=== PATIENT | male | born 1975 | race Caucasian/White ===

== ENCOUNTER 2017-09-26 14:27 | Inpatient (IN) ==
[2017-09-26 15:14] LABS: Apearance,Urine CLOUDY (Clear); Bilirubin,Urine Negative (Negative); Blood, Urine Large mg/dL (Negative); Glucose,Urine (UA) 50 mg/dL (Negative); Ketones,Urine Negative (Negative); Nitrite,Urine Negative (Negative); Protein,Urine 100 MG/DL; RBC,Urine 4412 /HPF (0-4); Urine Specific Gravity 1.018 (1.001-1.035); WBC,Urine 119 /HPF (0-6)
[2017-09-26 15:15] LABS: Urine Color Red (Yellow)
[2017-09-26] MEDS ORDERED: KETOROLAC 30 MG/1 ML VIAL IV STA (16:37)
[2017-09-26] MEDS ORDERED: SODIUM CHLORIDE 0.9% 1,000 ML IV STA (16:37)
[2017-09-26] MEDS ORDERED: ONDANSETRON 4 MG/2 ML VIAL IV STA (16:37)
[2017-09-26] MEDS ORDERED: HYDROmorphone 2 MG/1 ML VIAL IV STA (16:37)
[2017-09-26] MEDS ORDERED: LEVOFLOXACIN INJ 750 MG in PREMIX 1 EACH IV STA (16:37)
[2017-09-26] MEDS ORDERED: KETOROLAC 30 MG/1 ML VIAL ONE (17:38)
[2017-09-26] MEDS ORDERED: LEVOFLOXACIN INJ 150 ML IV ONE (17:38)
[2017-09-26] MEDS ORDERED: HYDROmorphone 2 MG/1 ML VIAL ONE (17:38)
[2017-09-26] MEDS ORDERED: ONDANSETRON 4 MG/2 ML VIAL ONE (17:38)
[2017-09-26 17:43] LABS: Basophils # 0.1 10*3/uL (0.0-0.2); Basophils % 0.4 % (0.0-0.8); Eosinophils # 0.1 10*3/uL (0.0-0.87); Eosinophils % 0.4 % (0.00-10.9); Hematocrit 42.7 VOL% (42.0-52.0); Hemoglobin 15.9 GM/DL (14.0-18.0); Immature Granulocytes % 0.5 %; Immature Granulocytes Absolute 0.11 #; Lymphocytes # 1.6 10*3/uL (1.4-4.0); Lymphocytes % 7.9 % (21.2-54.2); Mean Corpuscular HGB Conc 37.2 GM/DL (32-36); Mean Corpuscular Hemoglobin 31 PG (27-34); Mean Corpuscular Volume 83.7 FL (87-102); Mean Platelet Volume 10.5 FL (9.6-12.0); Monocytes # 1.3 10*3/uL (0.11-0.8); Monocytes % 6.2 % (1.7-12.7); Neutrophils # 16.9 10*3/uL (1.4-7.4); Neutrophils % 84.6 % (38.7-73.9); Platelet Count 229 T/CUMM (130-400); Red Cell Distribution Width 13.1 % (9.3-17.3)
[2017-09-26 18:07] LABS: Albumin 4.1 G/DL (3.4-5.0); Bilirubin,Total 2.7 MG/DL (0.2-1.0); Calcium 9.1 MG/DL (8.5-10.1); Eosinophils 1 % (0-10); Lymphocytes 9 % (20-55); Magnesium 2.3 MG/DL (1.8-2.4); Osmolality,Calculated 279.7 MOS/KG (273-304); Platelet Estimate Adequate; Potassium 3.3 MMOL/L (3.5-5.1); Segmented Neutrophils 85 % (50-85); Total Cells Counted 100; Total Protein 7.5 G/DL (6.4-8.3)
[2017-09-26] MEDS ORDERED: POTASSIUM CHLORIDE 20 MEQ TABLET PO STA (18:39)
[2017-09-26 19:29] LABS: Lactic Acid 0.6 MMOL/L (0.4-2.0)
[2017-09-26] MEDS ORDERED: MAGNESIUM CITRATE 300 ML BOTTLE PO ONE (19:32)
[2017-09-26] MEDS ORDERED: ONDANSETRON 4 MG/2 ML VIAL IV PRN (19:45)
[2017-09-26] MEDS ORDERED: SODIUM CHLORIDE 0.9% 1,000 ML IV ONE (19:45)
[2017-09-26 19:46] LABS: PT Patient Result 10.9 SECS; Partial Thromboplastin Time 27.8 SECS (0-40)
[2017-09-26] MEDS ORDERED: POTASSIUM CHLORIDE 20 MEQ TABLET PO ONE (20:01)
[2017-09-26] MEDS: CARVEDILOL 12.5 MG TABLET PO SCH (20:46)
[2017-09-26] MEDS: amLODIPine 5 MG TABLET PO SCH (20:46)
[2017-09-26] MEDS: SODIUM CHLORIDE 0.45% 1,000 ML IV SCH (20:47)
[2017-09-26 21:20] LABS: Hepatitis A Ab IgM Quant 0.11 Index; Hepatitis A Ab IgM Result Negative (Negative); Hepatitis B Core IgM Quant 0.13 Index; Hepatitis B Core IgM Result Negative (Negative); Hepatitis B Surface Ag Quant 0.13 Index; Hepatitis B Surface Ag Result Negative (Negative); Hepatitis C Virus Ab Quant 0.11 Index; Hepatitis C Virus Ab Result Negative (Negative)
[2017-09-27] MEDS ORDERED: PNEUMOCOCCAL VACCINE (13 VALENT) 0.5 ML SYRINGE IM ONE (01:22)
[2017-09-27] MEDS: AZELASTINE NASAL 137 MCG/SPRAY 30 ML BOTTLE BOTH NARES SCH ×3 (02:09→23:02)
[2017-09-27] MEDS: SODIUM CHLORIDE 0.45% 1,000 ML IV SCH ×3 (06:01→20:24)
[2017-09-27 06:54] LABS: Albumin 3.2 G/DL (3.4-5.0); Bilirubin,Total 3.3 MG/DL (0.2-1.0); Calcium 8.1 MG/DL (8.5-10.1); Osmolality,Calculated 282.4 MOS/KG (273-304); Potassium 4.2 MMOL/L (3.5-5.1); Total Protein 6.4 G/DL (6.4-8.3)
[2017-09-27 07:07] LABS: Risk Ratio 3.39; VLDL CHOLESTEROL 17.2 MG/DL
[2017-09-27 07:30] LABS: Basophils # 0.1 10*3/uL (0.0-0.2); Basophils % 0.5 % (0.0-0.8); Eosinophils # 0.1 10*3/uL (0.0-0.87); Eosinophils % 0.7 % (0.00-10.9); Hematocrit 38.6 VOL% (42.0-52.0); Hemoglobin 14.1 GM/DL (14.0-18.0); Immature Granulocytes % 0.7 %; Immature Granulocytes Absolute 0.12 #; Lymphocytes # 1.7 10*3/uL (1.4-4.0); Lymphocytes % 9.9 % (21.2-54.2); Mean Corpuscular HGB Conc 36.5 GM/DL (32-36); Mean Corpuscular Hemoglobin 31 PG (27-34); Mean Corpuscular Volume 84.5 FL (87-102); Mean Platelet Volume 10.9 FL (9.6-12.0); Monocytes # 1.2 10*3/uL (0.11-0.8); Monocytes % 6.7 % (1.7-12.7); Neutrophils # 14.3 10*3/uL (1.4-7.4); Neutrophils % 81.5 % (38.7-73.9); Platelet Count 181 T/CUMM (130-400); Red Blood Count 4.57 MC/CUMM (3.8-5.5); Red Cell Distribution Width 13.2 % (9.3-17.3); White Blood Count 17.6 T/CUMM (4-12)
[2017-09-27] MEDS: CARVEDILOL 12.5 MG TABLET PO SCH ×2 (08:26→20:17)
[2017-09-27] MEDS: PANTOPRAZOLE 40 MG TABLET PO SCH (08:26)
[2017-09-27] MEDS ORDERED: ALBUTEROL/IPRATROPIUM 3 ML NEB RESP TX PRN (15:36)
[2017-09-27] MEDS: TAMSULOSIN 0.4 MG CAPSULE PO SCH (16:30)
[2017-09-27] MEDS ORDERED: LEVOFLOXACIN INJ 750 MG in PREMIX 1 EACH IV SCH (18:00)
[2017-09-27] MEDS: amLODIPine 5 MG TABLET PO SCH (20:17)
[2017-09-28] MEDS: CARVEDILOL 12.5 MG TABLET PO SCH (09:52)
[2017-09-28] MEDS: TAMSULOSIN 0.4 MG CAPSULE PO SCH (09:52)
[2017-09-28] MEDS: PANTOPRAZOLE 40 MG TABLET PO SCH (09:52)
[2017-09-28 09:55] LABS: Albumin 3.2 G/DL (3.4-5.0); Bilirubin,Total 2.1 MG/DL (0.2-1.0); Calcium 8.1 MG/DL (8.5-10.1); Osmolality,Calculated 284.1 MOS/KG (273-304); Potassium 3.8 MMOL/L (3.5-5.1); Total Protein 6.3 G/DL (6.4-8.3)
[2017-09-28 10:00] LABS: Basophils # 0.1 10*3/uL (0.0-0.2); Basophils % 0.4 % (0.0-0.8); Eosinophils # 0.3 10*3/uL (0.0-0.87); Eosinophils % 1.8 % (0.00-10.9); Hematocrit 37.7 VOL% (42.0-52.0); Hemoglobin 13.9 GM/DL (14.0-18.0); Immature Granulocytes Absolute 0.14 #; Lymphocytes # 1.8 10*3/uL (1.4-4.0); Lymphocytes % 12.9 % (21.2-54.2); Mean Corpuscular HGB Conc 36.9 GM/DL (32-36); Mean Corpuscular Hemoglobin 31 PG (27-34); Mean Corpuscular Volume 85.1 FL (87-102); Mean Platelet Volume 10.8 FL (9.6-12.0); Monocytes # 0.8 10*3/uL (0.11-0.8); Monocytes % 5.6 % (1.7-12.7); Neutrophils % 78.3 % (38.7-73.9); Platelet Count 194 T/CUMM (130-400); Red Blood Count 4.43 MC/CUMM (3.8-5.5); Red Cell Distribution Width 13.1 % (9.3-17.3)
[2017-09-28] MEDS: SODIUM CHLORIDE 0.45% 1,000 ML IV SCH (11:26)
[2017-09-28 16:37] VITALS: BP 135/77
== END 2017-09-28 18:00 | disposition home or self-care (01) | DRG 872 ==
LOC: N.ED 14:27 → N.EDINP 19:17 → N.5E 19:42
PROVIDERS: ADMIT Internal Medicine; ATTEND Internal Medicine

== ENCOUNTER 2019-04-10 08:56 | Inpatient (IN) ==
[2019-04-10] MEDS ORDERED: methylPREDNISolone SOD SUC 125 MG/2 ML VIAL IV STA (09:34)
[2019-04-10] MEDS ORDERED: cefTRIAXone 1,000 MG in SODIUM CHLORIDE 0.9% 100 ML IV STA (09:34)
[2019-04-10] MEDS ORDERED: ONDANSETRON 4 MG/2 ML VIAL IV STA (09:34)
[2019-04-10] MEDS ORDERED: cefTRIAXone 1,000 MG in SYRINGE 1 EACH IV STA (09:39)
[2019-04-10 09:58] LABS: Basophils # 0.1 10*3/uL (0.0-0.2); Basophils % 0.4 % (0.0-0.8); Eosinophils # 0.1 10*3/uL (0.0-0.87); Eosinophils % 0.7 % (0.00-10.9); Hematocrit 41.2 VOL% (42.0-52.0); Hemoglobin 14.6 GM/DL (14.0-18.0); Immature Granulocytes % 0.7 %; Immature Granulocytes Absolute 0.12 #; Lymphocytes # 1.1 10*3/uL (1.4-4.0); Lymphocytes % 6.8 % (21.2-54.2); Mean Corpuscular HGB Conc 35.4 GM/DL (32-36); Mean Corpuscular Volume 85.3 FL (87-102); Mean Platelet Volume 10.9 FL (9.6-12.0); Monocytes % 4.8 % (1.7-12.7); Neutrophils % 86.6 % (38.7-73.9); Platelet Count 302 T/CUMM (130-400); Red Blood Count 4.83 MC/CUMM (3.8-5.5); Red Cell Distribution Width 13.4 % (9.3-17.3); White Blood Count 16.7 T/CUMM (4-12)
[2019-04-10] MEDS ORDERED: ALBUTEROL NEB SOLN 5 MG/ML 20 ML/BOTTLE RESP TX SCH (10:00)
[2019-04-10 10:10] LABS: Albumin 3.7 G/DL (3.4-5.0); Bilirubin,Total 4.2 MG/DL (0.2-1.0); Calcium 9.3 MG/DL (8.5-10.1); Osmolality,Calculated 280.1 MOS/KG (273-304)
[2019-04-10] MEDS ORDERED: POTASSIUM CHLORIDE 20 MEQ TABLET PO STA (10:14)
[2019-04-10] MEDS ORDERED: ZALEPLON 5 MG CAPSULE PO PRN (11:56)
[2019-04-10] MEDS ORDERED: ACETAMINOPHEN 325 MG TABLET PO PRN (11:56)
[2019-04-10] MEDS ORDERED: ALBUTEROL/IPRATROPIUM 3 ML NEB RESP TX PRN (11:56)
[2019-04-10] MEDS ORDERED: ONDANSETRON 4 MG/2 ML VIAL IV PRN (11:56)
[2019-04-10] MEDS: DEXTROSE 5% NACL 0.45% 1,000 ML IV SCH ×2 (12:12→21:16)
[2019-04-10] MEDS: LEVOFLOXACIN INJ 750 MG in PREMIX 1 EACH IV SCH (12:12)
[2019-04-10] MEDS ORDERED: DEXTROSE 50% 25 GM/50 ML SYRINGE IV PRN (14:30)
[2019-04-10] MEDS ORDERED: GLUCAGON 1 MG VIAL IM PRN (14:30)
[2019-04-10] MEDS ORDERED: amLODIPine 10 MG TABLET PO SCH ×2 (14:30→21:00)
[2019-04-10] MEDS: METOPROLOL TARTRATE 50 MG TABLET PO SCH ×2 (15:38→21:16)
[2019-04-10] MEDS: INSULIN LISPRO 100 UNIT/ML SUBCUT SCH ×2 (18:09→21:15)
[2019-04-10] MEDS: ENOXAPARIN 40 MG/0.4 ML SYRINGE SUBCUT SCH (21:15)
[2019-04-10] MEDS: guaiFENesin/DM ER 600-30 MG TABLET PO SCH (21:16)
[2019-04-11 04:54] LABS: Basophils % 0.2 % (0.0-0.8); Hematocrit 39.1 VOL% (42.0-52.0); Hemoglobin 13.6 GM/DL (14.0-18.0); Immature Granulocytes % 0.9 %; Immature Granulocytes Absolute 0.17 #; Lymphocytes # 1.2 10*3/uL (1.4-4.0); Lymphocytes % 6.6 % (21.2-54.2); Mean Corpuscular HGB Conc 34.8 GM/DL (32-36); Mean Platelet Volume 10.5 FL (9.6-12.0); Monocytes % 4.3 % (1.7-12.7); Platelet Count 312 T/CUMM (130-400); Red Cell Distribution Width 13.2 % (9.3-17.3); White Blood Count 18.8 T/CUMM (4-12)
[2019-04-11 05:14] LABS: Calcium 9.1 MG/DL (8.5-10.1); Osmolality,Calculated 281.2 MOS/KG (273-304)
[2019-04-11 05:18] LABS: Albumin 3.4 G/DL (3.4-5.0); Bilirubin,Total 2.4 MG/DL (0.2-1.0); Total Protein 7.6 G/DL (6.4-8.3); VLDL CHOLESTEROL 19.6 MG/DL
[2019-04-11] MEDS: guaiFENesin/DM ER 600-30 MG TABLET PO SCH ×2 (08:15→21:42)
[2019-04-11] MEDS: METOPROLOL TARTRATE 50 MG TABLET PO SCH ×2 (08:15→21:42)
[2019-04-11] MEDS: INSULIN LISPRO 100 UNIT/ML SUBCUT SCH ×4 (08:16→21:41)
[2019-04-11] MEDS: PANTOPRAZOLE 40 MG TABLET PO SCH (08:16)
[2019-04-11] MEDS: DOCUSATE SODIUM 100 MG CAPSULE PO SCH ×2 (09:12→21:42)
[2019-04-11] MEDS: LEVOFLOXACIN INJ 750 MG in PREMIX 1 EACH IV SCH (12:34)
[2019-04-11] MEDS: DEXTROSE 5% NACL 0.45% 1,000 ML IV SCH (12:34)
[2019-04-11] MEDS: INSULIN GLARGINE 100 UNIT/ML SUBCUT SCH (15:34)
[2019-04-11] MEDS: glyBURIDE 5 MG TABLET PO SCH (17:05)
[2019-04-11] MEDS: SODIUM CHLOR 0.45% KCL 20 MEQ 20 MEQ/1,000 ML BAG IV SCH (17:37)
[2019-04-11] MEDS: ALBUTEROL/IPRATROPIUM 3 ML NEB RESP TX SCH (20:48)
[2019-04-11] MEDS: amLODIPine 10 MG TABLET PO SCH (21:42)
[2019-04-11] MEDS: methylPREDNISolone SOD SUC 40 MG/1 ML VIAL IV SCH (21:43)
[2019-04-11] MEDS: ENOXAPARIN 40 MG/0.4 ML SYRINGE SUBCUT SCH (21:44)
[2019-04-12] MEDS: ALBUTEROL/IPRATROPIUM 3 ML NEB RESP TX SCH ×4 (00:54→20:15)
[2019-04-12] MEDS: SODIUM CHLOR 0.45% KCL 20 MEQ 20 MEQ/1,000 ML BAG IV SCH ×2 (03:21→15:51)
[2019-04-12 05:10] LABS: Basophils % 0.2 % (0.0-0.8); Eosinophils % 0.1 % (0.00-10.9); Hematocrit 38.2 VOL% (42.0-52.0); Hemoglobin 13.2 GM/DL (14.0-18.0); Immature Granulocytes % 0.8 %; Immature Granulocytes Absolute 0.08 #; Lymphocytes # 0.6 10*3/uL (1.4-4.0); Lymphocytes % 5.5 % (21.2-54.2); Mean Corpuscular HGB Conc 34.6 GM/DL (32-36); Mean Corpuscular Volume 86.6 FL (87-102); Mean Platelet Volume 10.8 FL (9.6-12.0); Monocytes % 1.1 % (1.7-12.7); Neutrophils % 92.3 % (38.7-73.9); Platelet Count 278 T/CUMM (130-400); Red Blood Count 4.41 MC/CUMM (3.8-5.5); Red Cell Distribution Width 13.3 % (9.3-17.3); White Blood Count 10.5 T/CUMM (4-12)
[2019-04-12 05:34] LABS: Calcium 8.7 MG/DL (8.5-10.1); Osmolality,Calculated 287.7 MOS/KG (273-304)
[2019-04-12 05:59] LABS: Lymphocytes 5 % (20-55); Platelet Estimate Normal; Segmented Neutrophils 93 % (50-85); Total Cells Counted 100
[2019-04-12] MEDS: INSULIN GLARGINE 100 UNIT/ML SUBCUT SCH (08:38)
[2019-04-12] MEDS: INSULIN LISPRO 100 UNIT/ML SUBCUT SCH ×4 (08:39→21:15)
[2019-04-12] MEDS: PANTOPRAZOLE 40 MG TABLET PO SCH (08:40)
[2019-04-12] MEDS: glyBURIDE 5 MG TABLET PO SCH ×2 (08:40→18:48)
[2019-04-12] MEDS: DOCUSATE SODIUM 100 MG CAPSULE PO SCH ×2 (08:41→21:15)
[2019-04-12] MEDS: METOPROLOL TARTRATE 50 MG TABLET PO SCH ×2 (08:41→21:14)
[2019-04-12] MEDS: guaiFENesin/DM ER 600-30 MG TABLET PO SCH ×2 (08:41→21:14)
[2019-04-12] MEDS: methylPREDNISolone SOD SUC 40 MG/1 ML VIAL IV SCH ×2 (08:42→21:16)
[2019-04-12] MEDS: LEVOFLOXACIN INJ 750 MG in PREMIX 1 EACH IV SCH (13:45)
[2019-04-12] MEDS: metFORMIN 500 MG TABLET PO SCH (18:48)
[2019-04-12] MEDS: ENOXAPARIN 40 MG/0.4 ML SYRINGE SUBCUT SCH (21:15)
[2019-04-12] MEDS: amLODIPine 10 MG TABLET PO SCH (21:15)
[2019-04-13] MEDS: SODIUM CHLOR 0.45% KCL 20 MEQ 20 MEQ/1,000 ML BAG IV SCH ×2 (01:51→13:55)
[2019-04-13] MEDS: ALBUTEROL/IPRATROPIUM 3 ML NEB RESP TX SCH ×3 (01:53→12:21)
[2019-04-13 05:07] LABS: Basophils % 0.2 % (0.0-0.8); Hematocrit 37.1 VOL% (42.0-52.0); Hemoglobin 12.6 GM/DL (14.0-18.0); Immature Granulocytes % 0.8 %; Immature Granulocytes Absolute 0.08 #; Lymphocytes # 0.8 10*3/uL (1.4-4.0); Lymphocytes % 7.3 % (21.2-54.2); Mean Corpuscular Volume 88.3 FL (87-102); Mean Platelet Volume 10.8 FL (9.6-12.0); Monocytes % 2.8 % (1.7-12.7); Neutrophils % 88.9 % (38.7-73.9); Platelet Count 259 T/CUMM (130-400); Red Cell Distribution Width 13.3 % (9.3-17.3); White Blood Count 10.5 T/CUMM (4-12)
[2019-04-13] MEDS ORDERED: LEVOFLOXACIN 750 MG TABLET PO SCH (09:00)
[2019-04-13] MEDS ORDERED: LISINOPRIL/HCTZ 20-12.5 MG TABLET PO SCH (09:00)
[2019-04-13] MEDS: INSULIN GLARGINE 100 UNIT/ML SUBCUT SCH (09:03)
[2019-04-13] MEDS: glyBURIDE 5 MG TABLET PO SCH (09:04)
[2019-04-13] MEDS: metFORMIN 500 MG TABLET PO SCH (09:04)
[2019-04-13] MEDS: INSULIN LISPRO 100 UNIT/ML SUBCUT SCH ×2 (09:04→13:56)
[2019-04-13] MEDS: PANTOPRAZOLE 40 MG TABLET PO SCH (09:05)
[2019-04-13] MEDS: DOCUSATE SODIUM 100 MG CAPSULE PO SCH (09:05)
[2019-04-13] MEDS: guaiFENesin/DM ER 600-30 MG TABLET PO SCH (09:06)
[2019-04-13] MEDS: METOPROLOL TARTRATE 50 MG TABLET PO SCH (09:06)
[2019-04-13] MEDS: methylPREDNISolone SOD SUC 40 MG/1 ML VIAL IV SCH (09:07)
[2019-04-13 12:12] VITALS: BP 155/72
== END 2019-04-13 14:09 | disposition home or self-care (01) | DRG 195 ==
LOC: N.ED 08:56 → SUATTDRO 11:57 → N.EDINP 11:57 → N.3E 13:07
PROVIDERS: ADMIT Family Medicine; ATTEND Internal Medicine